=== PATIENT | female | born 1995 | race Caucasian/White ===

== ENCOUNTER 2018-12-17 13:16 | Emergency (ER) | payer SELFPAY ==
[~2018-12-17] VITALS: Ht 175.3 cm; Wt 108.0 kg
[~2018-12-17 13:16] MED LIST: ACET325T33 PO; CIPR-193 PO; DENIES; ONDA4TAB8 PO
[2018-12-17 13:32] VITALS: BP 142/63; PULSE 99; RESP 16; Ht 175.3 cm; Wt 108.0 kg
[2018-12-17] MEDS ORDERED: AMOX1TAB10 PO (14:42)
--- NOTE | 2018-12-17 15:21 | ERD ---
ER Documentation Chief Complaint Chief Complaint DYSURIA WITH COMPLETION OF ANTIBIOTICS, TOLD TO RTN IF SYMPTOMS BACK HPI 23-year-old female presenting with dysuria times 2 weeks. Patient was discharged and take Cipro 2 weeks ago but feels that her symptoms never went away and she has persistent dysuria with malodorous urine. Patient has some mild suprapubic tenderness. Denies any fevers. Denies medical problems. Allergy to Suprax. Surgical history denies. Social history denies ROS All systems reviewed and are negative except as per history of present illness. Medications Home Meds Active Scripts Amoxicillin/Potassium Clav (Amox-Clav 875-125 mg Tablet) 875-125 mg Tab, 1 TAB PO BID for 7 Days, #14 TAB Prov:ALDA ROSE PA-C 12/17/18 Acetaminophen* (Tylenol*) 325 Mg Tablet, 2 TAB PO Q8 PRN for PAIN AND OR ELEVATED TEMP, #20 TAB Prov:BEE BOGGS MD 11/28/18 Ondansetron Hcl* (Zofran*) 4 Mg Tablet, 4 MG PO Q8H PRN for NAUSEA AND/OR VOMITING, #12 TAB Prov:BEE BOGGS MD 11/28/18 Ciprofloxacin Hcl* (Ciprofloxacin Hcl*) 250 Mg Tablet, 250 MG PO BID for 5 Days, #10 TAB Prov:BEE BOGGS MD 11/28/18 Reported Medications [None] No Conflict Check 08/13/11 [Denies] No Conflict Check 03/26/10 Allergies Allergies: Coded Allergies: Cefixime (Verified Allergy, Unknown, 08/13/11) Uncoded Allergies: SUPREX (Allergy, Mild, 08/13/11) PMhx/Soc History of Surgery: No Hx Neurological Disorder: No Hx Respiratory Disorders: No Hx Cardiac Disorders: No Hx Psychiatric Problems: No Hx Miscellaneous Medical Probl: No Hx Alcohol Use: No Hx Substance Use: No Hx Tobacco Use: No Smoking Status: Never smoker FmHx Family History: No diabetes, No coronary disease, No other Physical Exam Vitals Vital Signs Date Temp Pulse Resp B/P (MAP) Pulse Ox O2 O2 Flow FiO2 Time Delivery Rate 12/17/18 98.4 99 16 142/63 100 13:32 (89) Physical Exam GENERAL: The patient is well-appearing, well-nourished, in no acute distress CHEST: Clear to auscultation bilaterally. There are no rales, wheezes or rhonchi. HEART: Regular rate and rhythm. No murmurs, clicks, rubs or gallops. ABDOMEN:Soft, nontender and nondistended. Good bowel sounds. No rebound or guarding. No gross peritonitis. No gross organomegaly or masses. BACK: No midline or flank tenderness. Results 24 hrs Laboratory Tests Test 12/17/18 14:38 Bedside Urine pH (LAB) 5.5 Bedside Urine Protein (LAB) Negative Bedside Urine Glucose (UA) Negative Bedside Urine Ketones (LAB) Negative Bedside Urine Blood Negative Bedside Urine Nitrite (LAB) Negative Bedside Urine Leukocyte Esterase (L 1+ Procedures/MDM Urine sent for culture. Urine shows 1+ leuks. MDM: 23-year-old female presenting with dysuria. Patient be discharged with antibiotics. I will suspicion for pelvic infection. A low suspicion for pyelonephritis. Patient is discharged stricter precautions and told to follow- up with primary care within 1-2 days for close evaluation. She is told symptoms change or worsen to return immediately to the ER. All questions answered at discharge Departure Diagnosis: Primary Impression: Dysuria Condition: Stable Patient Instructions: Dysuria Referrals: [place] [id number] [facility] [address] [place], [place] [phone] OFFICE FAX WEN DRISCOLL [address] [place], [place] [phone]. WRAY PERTH [place] [address] [place], [place] [phone] WILLIAM MUELLER [id number] [facility], [address], [facility] [address] [address] [address] [place] [phone] [facility] [place] [address] [place] [id number] [id number] - [address], [facility] [phone], [place] [address] [facility]. [address], [facility] [phone]ORENO, [facility] [address] [place] [address] Additional Instructions: FOLLOW UP WITH YOUR PRIMARY CARE PHYSICIAN TOMORROW.Return to this facility if you are not improving as expected. ALDA ROSE PA-C Dec 17, 2018 15:21
== END 2018-12-17 15:18 | disposition home or self-care (01) ==
LOC: FTE 13:16
DX: R30.0 Dysuria (principal)
CPT/HCPCS: 81003; 87086; 99283